=== PATIENT | female | born 1975 | race Caucasian/White ===

== ENCOUNTER → 2017-08-29 | Outpatient (CLI) | payer BC ==
--- NOTE | 2017-08-29 11:59 | CT ---
CT abdomen and pelvis with contrast Indication: Increased urinary frequency and hematuria Technique: Helical CT images of the abdomen and pelvis were obtained with IV contrast. Reformatted im ages in the coronal and sagittal planes were also generated for review. Comparison: None Findings: Apart from mild dependent atelectasis, the visualized lung bases are clear. No aggressive o sseous lesions are identified. The liver, gallbladder, spleen, pancreas and adrenals are unremarkable. There are small nonobstructin g stones within the inferior left kidney, which measure up to 4 mm in size. A tiny probable cyst is n oted within the inferior right kidney. No definite additional radiopaque urinary tract stones are andres ntified, within the limitations of a contrast-enhanced exam and both kidneys enhance symmetrically wi thout evidence of obstruction. The appendix is not identified. There is no bowel inflammation or obstruction. The aortoiliac system is mildly calcified without aneurysm. The urinary bladder is mildly thick walled, possibly related to under distension. The uterus is surgically absent. There is a small likely functional right ovarian cyst. Trace free pelvic fluid is likely physiologic. No significant free flowing ascites, free air or lymphadenopathy is identified. Impression: Mild urinary bladder wall thickening, likely related to under distension. Correlate clinically for cy stitis. Nonobstructing left nephrolithiasis. Please see above report for additional incidental findings. Reported By:
== END | disposition home or self-care (01) | DRG 696 ==
LOC: RAD 10:10
PROVIDERS: ATTEND Internal Medicine
DX: R35.0 Frequency of micturition (principal); R31.9 Hematuria, unspecified; N20.0 Calculus of kidney
CPT/HCPCS: 74177; A4222